=== PATIENT | male | born 1980 | race Caucasian/White ===

== ENCOUNTER 2024-04-03 20:58 | Emergency (ER) | payer BC ==
[~2024-04-03] VITALS: Ht 167.6 cm; Wt 80.3 kg
[2024-04-03 21:07] VITALS: BP_SYST 142; PULSE 78; RESP 18; TEMP 98; O2SAT 98
[2024-04-03] MEDS: KETOROLAC TROMETHAMINE 30 MG VIAL IM ONE (21:31)
[2024-04-03 21:34] LABS: BILIRUBIN,URINE NEGATIVE (NEGATIVE); BLOOD, URINE NEGATIVE (NEGATIVE); CLARITY/URINE CLEAR (CLEAR); COLOR,URINE YELLOW (YELLOW); GLUCOSE,URINE NEGATIVE (NEGATIVE); KETONES,URINE NEGATIVE (NEGATIVE); LEUKOCYTE ESTERASE ,URINE NEGATIVE (NEGATIVE); NITRITE, URINE NEGATIVE (NEGATIVE); PROTEIN URINE NEGATIVE (NEGATIVE); UROBILINOGEN,URINE 0.2 (0.2-1.0)
[2024-04-03] MEDS ORDERED: TAMS-11 PO (22:01)
== END 2024-04-03 22:03 | disposition home or self-care (01) ==
LOC: SED 20:58
DX: N40.0 Benign prostatic hyperplasia without lower urinary tract symptoms (principal)
CPT/HCPCS: 99284; 81001; 72100; 96372; J1885; 81003